=== PATIENT | female | born 1995 ===

== ENCOUNTER 2020-05-13 22:45 | Outpatient (CLI) | payer OTHER, SELFPAY ==
[2020-06-24 11:32] LABS: CHLAMYDIA DNA AMPLIFICATION NEGATIVE (NEGATIVE); GC DNA AMPLIFICATION NEGATIVE (NEGATIVE)
[2020-07-04 11:17] LABS: HEMATOCRIT 33.8 % (36.0-47.0); HEMOGLOBIN 11.8 g/dl (12.0-15.5); MEAN CORPUSCULAR HEMOGLOBIN 32.1 pg (27.0-33.0); MEAN CORPUSCULAR HGB CONC 34.9 g/dl (32.0-36.5); MEAN CORPUSCULAR VOLUME 91.8 fl (80.0-96.0); PLATELET COUNT, AUTOMATED 190 10^3/uL (150-450); RED BLOOD COUNT 3.68 10^6/uL (4.00-5.40); WHITE BLOOD COUNT 9.5 10^3/uL (4.0-10.0)
== END 2020-05-14 13:20 ==
LOC: M LDO 22:45
PROVIDERS: ATTEND Advanced Practice Midwife
DX: O26.852 Spotting complicating pregnancy, second trimester (principal); O9A.312 Physical abuse complicating pregnancy, second trimester; O09.72 Supervision of high risk pregnancy due to social problems, second trimester; O09.32 Supervision of pregnancy with insufficient antenatal care, second trimester; Z3A.20 20 weeks gestation of pregnancy